=== PATIENT | male | born 1970 | race Caucasian/White ===

== ENCOUNTER → 2019-01-25 | Outpatient (CLI) | payer BC ==
[~2019-01-25] MED LIST: ASPIR 8181 MG PO; ATENOLOL-CHLOR1 EACH PO; DILTIAZEM ER120 MG PO; OMEPRAZOLE20 M3 PO; PRAVASTATIN SOD10 MG PO; VITAMIN D-32000 UNI1 PO; ZESTRIL10 MG PO; ZYLOPRIM100 MG PO
--- NOTE | ~2019-01-25 | ST ---
[place], [place] EXERCISE STRESS TEST REPORT NAME: BHAVIN LORENZO UNIT #: [id number] ROOM: DOCTOR: CHUCKIE MACARIO [facility] BIRTHDATE: [birth year] DOS: 01/25/2019 The patient underwent stress test on stage 4 Marcos protocol about 60 seconds in stage 4 and the heart rate obtained was 155, blood pressure 140/72. No ischemic changes on EKG. No angina and isotope was injected. Exercised a minute after injecting the isotope. Myocardial perfusion scan to follow. The patient's exercise tolerance is good. No EKG changes noted. MICHAEL NOGUERA MD CM:STRESS:EXERCISE STRESS TEST REPORT [id number] MICHAEL NOGUERA MD [facility]
--- NOTE | 2019-01-25 12:50 | NUR ---
INFORMED CONSENT OBTAINED FOR EXERCISE CARDIOLITE STRESS TEST WITH DR. NOGUERA. RESTING EKG NSR WITH A SUPINE HR OF 60 WITH BP OF 128/82 AND HR OF 76 WITH BP OF 122/88 IN STANDING POSITION. PT COMPLETED 9:30 OF A JUNE PROTOCOL WITH COMPLETION OF 30 SECONDS OF STAGE IV AT 4.2 MPH AND 16% GRADE. REACHED A PEAK HR OF 155 WHICH IS 90% OF PREDICTED MAX WITH A PEAK BP OF 182/80. TEST TERMINATED BECAUSE OF FATIGUE. HAD NO CHEST PAIN OR ANY EKG CHANGES. HAS AN AVERAGE EXERCISE TOLERANCE. LAST RECOVERY HR OF 97 WITH BP OF 154/96. POST TESTING TO NUCLEAR MEDICINE IN STABLE CONDITION.
== END | disposition home or self-care (01) ==
LOC: CARD 00:46
DX: E78.2 Mixed hyperlipidemia (principal); I10 Essential (primary) hypertension; R00.2 Palpitations; R07.89 Other chest pain; R94.31 Abnormal electrocardiogram [ECG] [EKG]; Z82.49 Family history of ischemic heart disease and other diseases of the circulatory system

== ENCOUNTER → 2020-11-21 | Outpatient (CLI) | payer BC ==
[2020-11-21 08:37] LABS: BASO # 0.1 10*3/uL (0.0-0.1); BASO % 0.8 % (0.0-1.0); EOS # 0.2 10*3/uL (0.0-0.4); EOS % 3.1 % (1.0-4.0); HEMATOCRIT 43.8 % (42.0-52.0); LYMPH # 1.5 10*3/uL (1.3-4.4); LYMPH % 22.6 % (27.0-41.0); MEAN CELL VOLUME 89.4 fl (80.0-94.0); MEAN CORPUSCULAR HGB CONC 35.8 g/dl (33.0-37.0); MEAN PLATELET VOLUME 9.5 fl (9.6-12.3); MONO # 0.5 10*3/uL (0.1-1.0); MONO % 8.4 % (3.0-9.0); NEUT # 4.2 10*3/uL (2.3-7.9); NEUT % 64.8 % (47.0-73.0); PLATELET COUNT AUTOMATED 197 10*3/uL (130-400); RED CELL DISTRI WIDTH 12.4 % (0-14.5); WHITE BLOOD COUNT 6.4 10*3/uL (4.8-10.8)
[2020-11-21 08:53] LABS: ALBUMIN 3.9 gm/dl (3.1-4.5); ALKALINE PHOSPHATASE 67 U/L (45-117); BUN 19 mg/dl (7-24); CHLORIDE 104 mmol/L (98-107); CHOLESTEROL 177 mg/dL (<200); CREATININE 0.94 mg/dL (0.70-1.30); LDL CHOLESTEROL 91 mg/dL (9-159); POTASSIUM 3.5 mmol/L (3.5-5.1); SGOT/AST 16 IU/L (3-35); SGPT/ALT 32 U/L (12-78); SODIUM 139 mmol/L (136-145); TOTAL PROTEIN 7.1 gm/dL (6.4-8.2); TRIGLYCERIDES 239 mg/dl (<150); URIC ACID 6.7 mg/dL (3.5-7.2)
== END | disposition home or self-care (01) ==
LOC: LAB 07:53
PROVIDERS: ATTEND Nurse Practitioner Family
DX: E78.5 Hyperlipidemia, unspecified (principal); I10 Essential (primary) hypertension; K21.9 Gastro-esophageal reflux disease without esophagitis; M10.9 Gout, unspecified; R73.01 Impaired fasting glucose

== ENCOUNTER → 2024-01-13 | Outpatient (CLI) | payer BC | END | disposition home or self-care (01) | LOC: LAB 15:05 | PROVIDERS: ATTEND Nurse Practitioner Family | DX: R30.0 Dysuria (principal) ==

== ENCOUNTER → 2024-12-20 | Outpatient (CLI) | payer BC ==
[2024-12-20 13:08] LABS: BUN 15 mg/dl (9-23); SGPT/ALT 26 U/L (5-49)
== END | disposition home or self-care (01) ==
LOC: ZRHCWE 12:19
PROVIDERS: ATTEND Nurse Practitioner Family
DX: I10 Essential (primary) hypertension (principal); E11.9 Type 2 diabetes mellitus without complications; K21.9 Gastro-esophageal reflux disease without esophagitis; M10.9 Gout, unspecified; E78.5 Hyperlipidemia, unspecified; Z12.5 Encounter for screening for malignant neoplasm of prostate; Z00.00 Encounter for general adult medical examination without abnormal findings; Z79.4 Long term (current) use of insulin

== ENCOUNTER → 2024-12-31 | Outpatient (CLI) | payer BC | END | disposition home or self-care (01) | LOC: RAD 11:42 | PROVIDERS: ATTEND Nurse Practitioner Family | DX: M19.021 Primary osteoarthritis, right elbow (principal); M25.511 Pain in right shoulder; M25.521 Pain in right elbow ==